=== PATIENT | male | born 1995 | race Hispanic/Latino ===

== ENCOUNTER 2020-05-10 07:47 | Outpatient (CLI) | payer OTHER ==
[2020-05-10 08:43] LABS: Blood Urea Nitrogen 11 mg/dL (9-20)
[2020-05-10] MEDS ORDERED: METOPROLOL TARTRATE 100 MG TAB PO ONE (09:00)
[2020-05-10] MEDS ORDERED: METOPROLOL TARTRATE 5 MG/5 ML INJ IV ONE (09:14)
[2020-05-10] MEDS ORDERED: ATROPINE 0.1% (1 MG/10 ML) CARDIAC SYRINGE ONE (09:15)
[2020-05-10] MEDS ORDERED: NITROGLYCERIN 0.4 MG TAB SUBL SL ONE ×2 (09:15→10:00)
[2020-05-10] MEDS ORDERED: METOPROLOL TARTRATE 5 MG/5 ML INJ IV PRN (09:30)
--- NOTE | 2020-05-10 10:15 | Cat Scan Report ---
Limited CTA chest Indication: Limited evaluation of the chest associated with cardiac CTA exam. Technique: Limited axial imaging performed through the chest for coronary CTA examination. Please ref er to the official CTA report for further details. All CT scans at this location are performed using CT dose reduction for ALARA by means of automated exposure control. Findings: No pathologic adenopathy. Visualized lungs are clear. There are degenerative changes in the spine with no acute osseous abnormality. Limited imaging through the upper abdomen shows nothing acute. Impression: No significant incidental finding. Signer Name: Quincy Lanier MD Signed: 05/10/2020 10:10 AM Workstation Name: [id number]
[2020-05-10 10:18] VITALS: BP 121/70
--- NOTE | 2020-05-11 21:01 | CT Calcium Scoring Report ---
Coronary Calcium Score Date of service: 05/11/20 Procedure: High-resolution computed tomographic imaging of the chest was performed on05/10/20 with particular attention paid to the coronary arteries. Images from the examination were analyzed for the presence and extent of coronary artery calcification, using coronary calcium quantification software. The patient tolerated the procedure well and there were no complications. The results of the coronary calcification analysis are provided below. The patient scores are compared with published data related to scores for people of a similar age and the same gender. - Findings Total Agatson Score: 0 Findings: Cardiac CTA Indication: chest pain Informed consent obtained Procedure: The patient was brought to the cardiac ct laboratory at [facility] n stable condition after a 4 hour fast. Heart rate was regulated by beta blockade. Sublingual ngt was administered. After data acquisition and reconstruction the images were processed and reviewed on the computer workstation. Multiple phases of the car diac cycle were assessed for image interpretation. Volume rendered images, multiplanar reformated images, and maximum intensity projections images were generated and reviewed A coronary calcium score was performed via the Agatston method was performed. A separate radiology assessment of the non cardiac structures in the field of view will be provided. Superior vena cava in the field of view appears normal Inferior vena cava in the filed of view appears normal Ascending aorta in the field of view appears normal Descending aorta in the field of view appears normal Pulmonary artery in the filed of view appears normal Pulmonary veins enter the left atrium appropriately Left ventricle appears normal Right Ventricle appears normal Left atrium appears normal Left atrial appendage appears normal Right atrium appears normal Interventricular septum appears normal Interatrial septum appears normal Aortic valve appears normal Mitral Valve appears normal Intracardiac mass: none Pericardial effusion: none Coronary Angiography: Dominance: right coronary dominace Origins: normal coronary origins Left main: normal Left anterior descending coronary artery and diagonal branches: normal Circumflex coronary artery and obtuse marginal branches: normal Right coronary artery: normal
== END 2020-05-10 10:00 | disposition home or self-care (01) ==
LOC: CT 07:47
PROVIDERS: ATTEND Internal Medicine Cardiovascular Disease
DX: R07.89 Other chest pain (principal); M47.814 Spondylosis without myelopathy or radiculopathy, thoracic region; Z82.49 Family history of ischemic heart disease and other diseases of the circulatory system
CPT/HCPCS: 36415; 75574; 82565; 84520; Q9967; J0461